=== PATIENT | female | born 1995 | race Caucasian/White ===

== ENCOUNTER 2016-06-03 02:58 | Emergency (ER) | payer MEDICAID ==
[~2016-06-03] VITALS: Ht 160 cm; Wt 101.8 kg
[~2016-06-03 02:58] MED LIST: BACT800T5 PO; CLIN1CAP6 PO; IBUP800T23 PO
[2016-06-03 03:03] VITALS: BP 125/82; PULSE 77; RESP 18; TEMP 98; O2SAT 97
[2016-06-03 03:34] LABS: BLOOD, URINE TRACE (NEG); GLUCOSE,URINE NEG (NEG); KETONE, URINE NEG (NEG); NITRITE,URINE NEG (NEG)
--- NOTE | 2016-06-03 03:36 | PD ---
HPI Chief Complaint: Pain: Acute or Chronic Time Seen by Provider: 03:19 Travel History International Travel<30 days: No Contact w/Intl Traveler<30days: No Traveled to known affect area: No History of Present Illness HPI The patient is a 20-year-old female that complains of a vague discomfort in the right upper quadrant for about 3 days. She cannot correlate it with eating food. She denies any fever, nausea, vomiting, diarrhea, melanotic or bloody stools. She denies any dysuria, frequency or urgency. PFSH Past Medical History Medical History: Denies Significant Hx Diminished Hearing: No Immunizations Current: Yes Tetanus Vaccination: < 5 Years Influenza Vaccination: No ?: Not LMP: Apr, : 0 Past Surgical History Tonsillectomy: Yes (T&A) Tympanostomy Tube: Yes Social History Alcohol Use: No Tobacco Use: No Substance Use: No Allergies-Medications (Allergen,Severity, Reaction): Coded Allergies: Keflex (Verified Allergy, Unknown, 06/03/16) Reported Meds & Prescriptions Reported Meds & Active Scripts Active No Active Prescriptions or Reported Medications Review of Systems Except as stated in HPI: all other systems reviewed are Neg Physical Exam Narrative GENERAL: Well-nourished, alert and oriented, slightly obese patient in no apparent distress. The vital signs are normal. SKIN: Warm and dry. HEAD: Normocephalic. EYES: No scleral icterus. No injection or drainage. NECK: Supple, trachea midline. No JVD or lymphadenopathy. CARDIOVASCULAR: Regular rate and rhythm without murmurs, gallops, or rubs. RESPIRATORY: Breath sounds equal bilaterally. No accessory muscle use. GASTROINTESTINAL: Abdomen soft, with minimal discomfort to direct palpation exactly at the area where the gallbladder would be, nondistended. No guarding or rebound is present. Good's sign is negative. MUSCULOSKELETAL: No cyanosis, or edema. BACK: Nontender without obvious deformity. No CVA tenderness. Data Data Last Documented VS Vital Signs Date Time Temp Pulse Resp B/P Pulse Ox O2 Delivery O2 Flow Rate FiO2 06/03/16 03:03 98.0 77 18 125/82 97 Orders Urinalysis - C+S If Indicated (06/03/16 03:19) Ed Urine Pregnancytest Poc (06/03/16 03:19) Labs Laboratory Tests Test 06/03/16 03:22 Urine Collection Type VOIDED Urine Color STRAW Urine Turbidity CLEAR Urine pH 7.0 Urine Specific [place] 1.017 Urine Protein NEG mg/dL Urine Glucose (UA) NEG mg/dL Urine Ketones NEG mg/dL Urine Occult Blood TRACE Urine Nitrite NEG Urine Bilirubin NEG Urine Leukocyte Esterase TRACE Urine RBC 0-3 /hpf Urine WBC 0-2 /hpf Urine Squamous Epithelial >8 /hpf Cells Urine Bacteria RARE /hpf Microscopic Urinalysis Comment CULT NOT INDICATED MDM Medical Decision Making Medical Screen Exam Complete: Yes Emergency Medical Condition: Yes Medical Record Reviewed: Yes Interpretation(s) The urine shows trace occult blood, trace leukocyte esterase and rare bacteria and culture is not indicated. Differential Diagnosis Cholelithiasis, ulcer pain, muscle strain, colitis, urinary tract infection pyelonephritis Narrative Course The patient is consistently tender on the gallbladder area and when she takes a deep breath she has some slight discomfort but this cannot be called a positive Good's sign. This still may be muscle spasm or ulcer pain but the patient does not have any melanotic or bloody stools. An outpatient gallbladder ultrasound will be done. The patient's urine does not show any infection. Diagnosis Primary Impression: Abdominal pain of unknown etiology Additional Instructions: As we discussed, minor problems should be relieved by Motrin which I will prescribe. The gallbladder ultrasound should be scheduled at your convenience. Med/Other Pt SpecificInfo: Prescription(s) given Scripts Ibuprofen 600 Mg [id number] Mg PO TID #40 TAB Ref 0 Prov:Shade Adair MD 06/03/16 Shade Adair MD Jun 03, 2016 03:36
[2016-06-03 03:40] LABS: METHOD OF COLLECTION VOIDED; URINE COLOR STRAW (YELLW/STRAW)
[2016-06-03 03:42] LABS: BACTERIA, URINE RARE /hpf; COMMENT (UR) CULT NOT INDICATED; CULTURE IF INDICATED CULT NOT INDICATED; RBC, URINE 0-3 /hpf (0-3); SQUAMOUS EPITHELIAL CELL URINE >8 /hpf (0-5); WBC, URINE 0-2 /hpf (0-5)
[2016-06-03] MEDS ORDERED: IBUP-232 PO ×2 (04:02→04:04)
== END 2016-06-03 04:09 | disposition home or self-care (01) ==
LOC: PHED 02:58
DX: R10.11 Right upper quadrant pain (principal)
CPT/HCPCS: 81001; 84703; 99284

== ENCOUNTER 2016-06-05 14:02 | Emergency (ER) | payer MEDICAID ==
[~2016-06-05] VITALS: Ht 157.5 cm; Wt 102.0 kg
[~2016-06-05 14:02] MED LIST changes: +IBUP-232 PO
[2016-06-05 14:18] VITALS: BP 119/79; PULSE 95; RESP 16; TEMP 99.1; O2SAT 99
--- NOTE | 2016-06-05 15:31 | PD ---
HPI . patient here for US results Chief Complaint: Wound/Suture/Staple Re-Check Time Seen by Provider: 15:30 Travel History International Travel<30 days: No Contact w/Intl Traveler<30days: No Traveled to known affect area: No History of Present Illness HPI Patient had a ultrasound of her gallbladder done and is here to go over the results. The report is normal and patient has no complaints. She has been advised to follow up with primary care provider. PFSH Past Medical History Diminished Hearing: No Immunizations Current: Yes Tetanus Vaccination: < 5 Years Influenza Vaccination: No ?: Unknown LMP: 3 WEEKS AGO : 0 Past Surgical History Tonsillectomy: Yes (T&A) Tympanostomy Tube: Yes Social History Alcohol Use: No Tobacco Use: No Substance Use: No Allergies-Medications (Allergen,Severity, Reaction): Coded Allergies: Keflex (Verified Allergy, Unknown, 06/05/16) Reported Meds & Prescriptions Reported Meds & Active Scripts Active Ibuprofen 600 Mg Tab 600 Mg PO TID Ibuprofen 600 Mg Tab 600 Mg PO TID Review of Systems General / Constitutional: No: Fever Eyes: No: Visual changes HENT: No: Headaches Cardiovascular: No: Chest Pain or Discomfort Respiratory: No: Shortness of Breath Gastrointestinal: No: Abdominal Pain Genitourinary: No: Dysuria Musculoskeletal: No: Pain Skin: No Rash Neurologic: No: Weakness Psychiatric: No: Depression Endocrine: No: Polydipsia Hematologic/Lymphatic: No: Easy Bruising Physical Exam Narrative GENERAL: AAO x 3, no acute distress, Well-nourished, well-developed patient. SKIN: Warm and dry. No visible rashes or bruising. HEAD: Normocephalic and atraumatic. EYES: No scleral icterus. No injection or drainage. ENT: No nasal drainage noted. Mucous membranes pink. Airway patent. NECK: Supple, trachea midline. No JVD. CARDIOVASCULAR: Regular rate and rhythm without murmurs, gallops, or rubs. RESPIRATORY: Breath sounds equal bilaterally. No accessory muscle use. No rhonchi or rales. GASTROINTESTINAL: Abdomen soft, non-tender, nondistended. EXTREMITIES: No cyanosis or edema. BACK: Nontender without obvious deformity. No CVA tenderness. PSYCH: AAO x 3, normal affect. Data Data Last Documented VS Vital Signs Date Time Temp Pulse Resp B/P Pulse Ox O2 Delivery O2 Flow Rate FiO2 06/05/16 14:18 99.1 95 16 119/79 99 MDM Medical Decision Making Medical Screen Exam Complete: Yes Emergency Medical Condition: No Medical Record Reviewed: Yes Differential Diagnosis fatty liver, gerd, ibs Narrative Course A medical screening exam was performed: At the time of evaluation the presenting medical condition was determined not to be of an emergent nature. The patient was given the option of receiving additional care, but declined. Patient was given options for additional community resources from which to obtain care. The Patient Has Been advised to seek medical attention for their presenting complaint. The patient has been advised to return to the ER at any time if an emergent condition develops. Diagnosis Primary Impression: Encounter for medical screening examination Condition: Stable Lian Ruvalcaba Jun 05, 2016 15:31
== END 2016-06-05 16:10 | disposition left against medical advice (07) ==
LOC: PHED 14:02 → PHEFT 16:10
DX: R68.89 Other general symptoms and signs (principal)
CPT/HCPCS: 99281

== ENCOUNTER 2016-06-26 12:21 | Emergency (ER) | payer MEDICAID ==
[~2016-06-26] VITALS: Ht 160 cm; Wt 101.0 kg
[~2016-06-26 12:21] MED LIST changes: -BACT800T5 PO; -CLIN1CAP6 PO; -IBUP800T23 PO
[2016-06-26 12:26] VITALS: BP 131/84; PULSE 88; RESP 16; TEMP 98.4; O2SAT 98
--- NOTE | 2016-06-26 12:40 | PD ---
HPI Chief Complaint: General Weakness Time Seen by Provider: 12:33 Travel History International Travel<30 days: No Contact w/Intl Traveler<30days: No Traveled to known affect area: No History of Present Illness HPI The patient was seen and examined in the presence of the nurse. She complains of generalized weakness. Duration one day. Severity is mild. No alleviating factors. Not having fever or chest pain or shortness of breath. Not . PFSH Past Medical History Diminished Hearing: No Immunizations Current: Yes Tetanus Vaccination: < 5 Years Influenza Vaccination: No ?: Not LMP: 05/27/16 : 0 Past Surgical History Tonsillectomy: Yes (T&A) Tympanostomy Tube: Yes Social History Alcohol Use: No Tobacco Use: No Substance Use: No Allergies-Medications (Allergen,Severity, Reaction): Coded Allergies: Keflex (Verified Allergy, Unknown, 06/26/16) Reported Meds & Prescriptions Reported Meds & Active Scripts Active Ibuprofen 600 Mg Tab 600 Mg PO TID Review of Systems HENT: No: Headaches Cardiovascular: No: Chest Pain or Discomfort Respiratory: No: Cough Physical Exam Narrative GENERAL: Well-nourished, well-developed patient in no apparent distress. SKIN: Focused skin assessment reveals no rash and nodules. Skin is Warm and dry. HEAD: Atraumatic. Normocephalic. EYES: Pupils equal and round. No scleral icterus. No injection or drainage. ENT: No nasal bleeding or discharge. Mucous membranes pink and moist. NECK: Trachea midline. No JVD. CARDIOVASCULAR: Regular rate and rhythm. No murmur appreciated. RESPIRATORY: No accessory muscle use. Clear to auscultation. Breath sounds equal bilaterally. GASTROINTESTINAL: Abdomen soft, non-tender, nondistended. Hepatic and splenic margins not palpable. MUSCULOSKELETAL: No obvious deformities. No clubbing. No cyanosis. No edema. NEUROLOGICAL: Awake and alert. No obvious cranial nerve deficits. Motor grossly within normal limits. Normal speech. PSYCHIATRIC: Appropriate mood and affect; insight and judgment normal. Data Data Last Documented VS Vital Signs Date Time Temp Pulse Resp B/P Pulse Ox O2 Delivery O2 Flow Rate FiO2 06/26/16 12:35 74 16 100 Room Air 06/26/16 12:26 98.4 131/84 MDM Medical Decision Making Medical Screen Exam Complete: Yes Emergency Medical Condition: Yes Medical Record Reviewed: Yes Differential Diagnosis Anxiety, malaise, flu syndrome Narrative Course I have reviewed the patient's electronic medical record. Patient is a very frequent visitor for minor things Patient is a healthy 20-year-old with normal vital signs and normal exam and one day of vague weakness. I don't recommend any emergent workup. Follow-up with primary care as recommended Diagnosis Primary Impression: Generalized weakness Additional Instructions: The patient was advised to follow up with their physician and return if they worsen. Med/Other Pt SpecificInfo: Other Disposition: 01 DISCHARGE HOME Condition: Stable Poncho Salazar MD Jun 26, 2016 12:40
== END 2016-06-26 12:52 | disposition home or self-care (01) ==
LOC: PHED 12:21
DX: R53.1 Weakness (principal)
CPT/HCPCS: 99284